=== PATIENT | female | born 1990 | race Caucasian/White ===

== ENCOUNTER 2018-02-17 11:58 | Emergency (ER) | payer OTHER ==
[~2018-02-17] VITALS: Ht 162.6 cm; Wt 65.8 kg
[2018-02-17] MEDS ORDERED: BIRTH CONTROL (12:24)
[2018-02-17 12:41] LABS: Source, Urine Clean Catch
[2018-02-17 12:43] LABS: Blood, Urine 5+ (Neg); Glucose Qualitative, Urine Neg (Neg); Ketones, Urine Neg (Neg); Leukocyte Esterase, Urine 3+ (Neg); Nitrite, Urine Pos (Neg); Protein, Urine 1+ (Neg); Urobilinogen, Urine 3+ (Normal)
[2018-02-17 12:52] LABS: Bilirubin, Urine 3+ (Neg)
[2018-02-17 12:53] LABS: Appearance, Urine Clear (Clear); Color, Urine Amber (P-Yellow)
[2018-02-17 12:56] LABS: Red Blood Cells, Urine 25-50 /hpf (0-2); White Blood Cells, Urine 25-50 /hpf (0-5)
[2018-02-17 12:57] LABS: Squamous Epithelial Cells Few /hpf (Few)
[2018-02-17 12:58] LABS: Bacteria Few /hpf
[2018-02-17] MEDS ORDERED: NITR100 PO (13:11)
[2018-02-17] MEDS ORDERED: Pyridium200 MG PO (13:11)
== END 2018-02-17 13:24 | disposition home or self-care (01) ==
LOC: ER 11:58
PROVIDERS: Physician Assistant
DX: N39.0 Urinary tract infection, site not specified (principal); Z88.2 Allergy status to sulfonamides; Z87.891 Personal history of nicotine dependence
CPT/HCPCS: 81001; 81025; 87086; 99283